=== PATIENT | male | born 1960 | race American Indian/Alaskan Native ===

== ENCOUNTER 2018-07-10 17:58 | Emergency (ER) | payer SELFPAY ==
[2018-07-10 18:07] VITALS: BP 128/83
[2018-07-10] MEDS ORDERED: HYDROGEN PEROXIDE TP ONE (18:21)
[2018-07-10] MEDS ORDERED: HYDROGEN PEROXIDE ONE (18:23)
[2018-07-10] MEDS ORDERED: BOOSTRIX IM ONE (18:25)
[2018-07-10] MEDS ORDERED: BACTRIM DS PO ONE (18:25)
--- NOTE | 2018-07-10 18:30 | Emergency Department Report ---
- General Chief Complaint: Wound/Laceration Stated Complaint: INFECTED FINGER/PAINFUL Time Seen by Provider: 07/10/18 18:16 Source: patient Mode of arrival: Ambulatory Limitations: No Limitations - History of Present Illness Initial Comments: Mr. Reis is a very pleasant healthy 57-year-old male who has infection of his index finger. Infection began with a hangnail. He removed the hangnail, subsequently developed pus at the nailbed/nail edge and redness. No fever. -: Gradual, week(s) (1) Extremity Location: Left: Hand (index finger) Patient Tetanus UTD: No - Related Data Previous Rx's Medication Instructions Recorded Last Taken Type Sulfamethoxazole/Trimethoprim 1 each PO BID 10 Days #20 tablet 07/10/18 Unknown Rx [Bactrim DS TAB] Allergies Allergy/AdvReac Type Severity Reaction Status Date / Time No Known Allergies Allergy Verified 07/10/18 18:04 ED Review of Systems ROS: Stated complaint: INFECTED FINGER/PAINFUL Other details as noted in HPI Constitutional: denies: fever, malaise Skin: change in color ED Past Medical Hx - Past Medical History Previous Medical History?: No - Surgical History Past Surgical History?: No - Social History Smoking Status: Never Smoker Substance Use Type: None - Medications Home Medications: Home Medications Medication Instructions Recorded Confirmed Last Taken Type Sulfamethoxazole/Trimethoprim 1 each PO BID 10 Days #20 tablet 07/10/18 Unknown Rx [Bactrim DS TAB] ED Physical Exam - General Limitations: No Limitations General appearance: alert, in no apparent distress, other (healthy well- appearing pleasant articulate) - Head Head exam: Present: atraumatic, normocephalic - Respiratory Respiratory exam: Absent: respiratory distress - Neurological Exam Neurological exam: Present: alert, oriented X3, normal gait - Other Other exam information: Left index finger: Just distal to the nail there is purulence over a 1.5 cm x 0.8 cm region redness/edema extends to the PIP patients able to flex at the DIP PIP MCP. ED Course Vital Signs 07/10/18 18:04 Temperature 98.6 F Pulse Rate 82 Respiratory 16 Rate Blood Pressure 128/83 O2 Sat by Pulse 98 Oximetry - I & D Left Finger Type of Procedure: Simple Blade Size: 11 I & D Procedure: betadine prep, sterile dressing applied Progress: Patient gave verbal consent explained the risks alternatives benefits of incision and drainage. I used Betadine preparation was sterile gauze. I use a #11 blade to make stab incision at the lateral aspect. Copious amount of purulence immediately drained from the wound. I have patient place finger in hydrogen peroxide with complete expression of all pus. Patient was given wound care instructions. ED Medical Decision Making - Medical Decision Making Mr. Reis had paronychia and associated cellulitis. TDAP given. Bactrim prescribed. Critical care attestation.: If time is entered above; I have spent that time in minutes in the direct care of this critically ill patient, excluding procedure time. ED Disposition Clinical Impression: Paronychia of left index finger, Cellulitis of left index finger Disposition: DC-01 TO HOME OR SELFCARE Is pt being admited?: No Does the pt Need Aspirin: No Condition: Stable Instructions: Paronychia (ED), Cellulitis (ED) Prescriptions: Sulfamethoxazole/Trimethoprim [Bactrim DS TAB] 1 each PO BID 10 Days #20 tablet
== END 2018-07-10 18:36 | disposition home or self-care (01) ==
LOC: ED 17:58
DX: L03.012 Cellulitis of left finger (principal)
CPT/HCPCS: 90471; 90715; 99282